=== PATIENT | female | born 1960 | race Caucasian/White ===

== ENCOUNTER → 2024-08-24 07:49 | Outpatient (REF) | payer MEDICARE, BC, SELFPAY | LOC: HWRCS 07:49 | PROVIDERS: ATTENDING PHYSICIAN Internal Medicine Interventional Cardiology; FAMILY PHYSICIAN Internal Medicine | DX: Z01.810 Encounter for preprocedural cardiovascular examination (principal) | CPT/HCPCS: 78452; 93017; A9500; J2785 ==